=== PATIENT | female | born 1985 | race Caucasian/White ===

== ENCOUNTER 2020-12-08 04:19 | Emergency (ER) | payer OTHER ==
[~2020-12-08] VITALS: Ht 167.6 cm; Wt 52.2 kg
--- NOTE | 2020-12-08 04:44 | Emergency Room Report ---
History of Present Illness General Chief Complaint: Abdominal Pain Source: Patient (Corey Villa MD) Present Illness HPI 35-year-old female with no past medical history. She does get a history of frequent abdominal pain with nausea and vomiting. Has not had a problem for a year. She says she gets this intestinal obstruction with severe pain and go away after she go to sleep. This pain been ongoing for 1 day. She has multiple episode of vomiting. Pain is sharp in nature. 10 out of 10. She has no previous abdominal or pelvic surgery. She never had any work-up for this. No CT scan or endoscopy or colonoscopy. Nothing made it better. Any movement or palpation made it worse. No sick contact. (Corey Villa MD) Allergies: Coded Allergies: No Known Allergies (Unverified , 12/08/20) COVID-19 Screening Contact w/high risk pt: No Experienced COVID-19 symptoms?: No COVID-19 Testing performed SHIP SCRAPER: No (Corey Villa MD) Patient History Past Medical History: see triage record, old chart reviewed Past Surgical History: none Pertinent Family History: none Social History: Denies: smoking Now: No Immunizations: other Reviewed Nursing Documentation: PMH: Agreed; PSxH: Agreed (Corey Villa MD) Review of Systems Eye: Denies: eye pain, blurred vision ENT: Denies: ear pain, nose congestion, throat swelling Respiratory: Denies: cough, shortness of breath Cardiovascular: Denies: chest pain, palpitations Gastrointestinal: Reports: abdominal pain, nausea, vomiting; Denies: diarrhea Musculoskeletal: Denies: back pain, joint pain Skin: Denies: rash Neurological: Denies: headache, numbness Endocrine: Denies: increased thirst, increased urine Hematologic/Lymphatic: Denies: easy bruising All Other Systems: negative except mentioned in HPI (oCrey Villa MD) Physical Exam Vital Signs Date Time Temp Pulse Resp B/P (MAP) Pulse Ox O2 Delivery O2 Flow Rate FiO2 12/08/20 04:23 97.2 74 16 115/79 (91) 100 Room Air Vitals normal Sp02 EP Interpretation: reviewed, normal General Appearance: well appearing, no apparent distress, alert Head: normocephalic, atraumatic Eyes: bilateral eye PERRL, bilateral eye EOMI ENT: hearing grossly normal, normal pharynx Neck: full range of motion, supple, no meningismus Respiratory: chest non-tender, lungs clear, normal breath sounds Cardiovascular #1: regular rate, rhythm, no murmur Gastrointestinal: no mass, no organomegaly, no bruit, non-distended, tenderness - Diffuse, other - borogymi bowel sounds Musculoskeletal: back normal, normal range of motion, gait/station normal Psychiatric: mood/affect normal (Corey Villa MD) Medical Decision Making Diagnostic Impression: Primary Impression: SBO (small bowel obstruction) ER Course Patient with abdominal pain and nausea and vomiting. She is feeling better now after IV fluid, pain medication and antiemetics. Laboratory data is unremarkable. CT scan is still pending. I will sign this patient out to the oncoming doctor. (Corey Villa MD) ER Course Hospital Course 35-year-old female presents with abdominal pain and distention Initially seen and evaluated by Dr Villa; please see his note for full history and physical Clinical course Labs - no leukocytosis, Hb/Hct stable, electrolytes okay, UA negative CT abdomen and pelvis -high-grade small bowel obstruction Discussed with patient. NG tube placed. Confirmed on KUB. IV hydration continued. because of insurance patient will be transferred I feel this is a highly complex case requiring extensive working including EKG/Rhythm strip, Xray/CT/US, Blood/urine lab work, repeat exams while in ED, and administration of strong opiates/narcotics for pain control, admission to hospital or close patient follow up. Diagnosis - SBO Transferred in serious condition Laboratory Tests Test 12/08/20 04:40 12/08/20 04:49 Urine Color Yellow Urine Appearance Clear Urine pH 5 (4.5-8.0) Urine Specific Only 1.030 (1.005-1.035) Urine Protein 1+ (NEGATIVE) H Urine Glucose (UA) Negative (NEGATIVE) Urine Ketones 3+ (NEGATIVE) H Urine Blood 1+ (NEGATIVE) H Urine Nitrite Negative (NEGATIVE) Urine Bilirubin Negative (NEGATIVE) Urine Urobilinogen Normal MG/DL (0.0-1.0) Urine Leukocyte Esterase Negative (NEGATIVE) Urine RBC 0-2 /HPF (0 - 2) Urine WBC 0-2 /HPF (0 - 2) Urine Squamous Epithelial Cells Few /LPF (NONE/OCC) Urine Bacteria None /HPF (NONE) White Blood Count 8.5 K/UL (4.8-10.8) Red Blood Count 4.27 M/UL (4.20-5.40) Hemoglobin 13.8 G/DL (12.0-16.0) Hematocrit 41.7 % (37.0-47.0) Mean Corpuscular Volume 97 FL (80-99) Mean Corpuscular Hemoglobin 32.3 PG (27.0-31.0) H Mean Corpuscular Hemoglobin Concent 33.2 G/DL (32.0-36.0) Red Cell Distribution Width 12.4 % (11.6-14.8) Platelet Count 351 K/UL (150-450) Mean Platelet Volume 7.4 FL (6.5-10.1) Neutrophils (%) (Auto) % (45.0-75.0) Lymphocytes (%) (Auto) % (20.0-45.0) Monocytes (%) (Auto) % (1.0-10.0) Eosinophils (%) (Auto) % (0.0-3.0) Basophils (%) (Auto) % (0.0-2.0) Prothrombin Time 10.1 SEC (9.30-11.50) Prothromb Time International Ratio 0.9 (0.9-1.1) Activated Partial Thromboplast Time 26 SEC (23-33) Sodium Level 135 MMOL/L (136-145) L Potassium Level 4.1 MMOL/L (3.5-5.1) Chloride Level 99 MMOL/L (98-107) Carbon Dioxide Level 26 MMOL/L (21-32) Anion Gap 10 mmol/L (5-15) Blood Urea Nitrogen 14 mg/dL (7-18) Creatinine 0.8 MG/DL (0.55-1.30) Estimat Glomerular Filtration Rate > 60 mL/min (>60) Glucose Level 106 MG/DL (74-106) Calcium Level 9.3 MG/DL (8.5-10.1) Total Bilirubin 0.8 MG/DL (0.2-1.0) Aspartate Amino Transf (AST/SGOT) 23 U/L (15-37) Alanine Aminotransferase (ALT/SGPT) 24 U/L (12-78) Alkaline Phosphatase 49 U/L (46-116) Total Protein 7.6 G/DL (6.4-8.2) Albumin 4.4 G/DL (3.4-5.0) Globulin 3.2 g/dL Albumin/Globulin Ratio 1.4 (1.0-2.7) Lipase 76 U/L (73-393) Human Chorionic Gonadotropin, Quant 1 mIU/mL (1-6) (Roosevelt Feliciano MD) CT/MRI/US Diagnostic Results CT/MRI/US Diagnostic Results : Imaging Test Ordered: CT A/P Impression Procedure: CT Abdomen Pelvis WO Contrast EXAM: CT Abdomen and Pelvis Without Intravenous Contrast CLINICAL HISTORY: ABD PAIN TECHNIQUE: Axial computed tomography images of the abdomen and pelvis without intravenous contrast. Dose information not available. One or more of the following dose reduction techniques were used: automated exposure control, adjustment of the mA and/or kV according to patient size, use of iterative reconstruction technique. COMPARISON: No relevant prior studies available. FINDINGS: Lung bases: Unremarkable. No mass. No consolidation. ABDOMEN: Liver: Unremarkable. Gallbladder and bile ducts: Unremarkable. No calcified stones. No ductal dilation. Pancreas: Unremarkable. No ductal dilation. Spleen: Unremarkable. No splenomegaly. Adrenals: Unremarkable. No mass. Kidneys and ureters: Unremarkable. No obstructing stones. No hydronephrosis. Stomach and bowel: High-grade small bowel obstruction consisting of a dilated small bowel loop measuring up to 8.2 cm. There is ascitic, severe narrowing along both proximal and distal aspects of a prominent small bowel loop and therefore a closed loop obstruction is suspected. In addition, there is mild swirling of the abdominal mesentery, which increases index of suspicion for closed-loop obstruction. Surgical consultation is recommended. No perforation or free intraperitoneal air at this time. PELVIS: Appendix: Normal appendix. Bladder: Unremarkable. No stones. Reproductive: Unremarkable as visualized. ABDOMEN and PELVIS: Intraperitoneal space: Unremarkable. No free air. No significant fluid collection. Bones/joints: No acute fracture. No dislocation. Soft tissues: Unremarkable. Vasculature: Unremarkable. No abdominal aortic aneurysm. Lymph nodes: Unremarkable. No enlarged lymph nodes. IMPRESSION: High-grade small bowel obstruction consisting of a dilated small bowel loop measuring up to 8.2 cm. There is ascitic, severe narrowing along both proximal and distal aspects of a prominent small bowel loop and therefore a closed loop obstruction is suspected. In addition, there is mild swirling of the abdominal mesentery, which increases index of suspicion for closed-loop obstruction. Surgical consultation is recommended. No perforation or free intraperitoneal air at this time. <MYCVCSECTION> Communications: 12/08/20 07:40 Call Doctor Regarding Other, called Dr. Feliciano on 12/08 07:41 (-07:00) (Roosevelt Feliciano MD) Last Vital Signs Date Time Temp Pulse Resp B/P (MAP) Pulse Ox O2 Delivery O2 Flow Rate FiO2 12/08/20 04:23 97.2 74 16 115/79 (91) 100 Room Air Status: improved (Corey Villa MD) Status: improved (Roosevelt Feliciano MD) Disposition: SHORT-TERM HOSP Condition: Serious Corey Villa MD Dec 08, 2020 04:44 Roosevelt Feliciano MD Dec 08, 2020 11:42
[2020-12-08] MEDS ORDERED: Morphine Sulfate 4mg/ml Inj IVP ONE ×3 (04:45→10:30)
--- NOTE | 2020-12-08 04:50 | NUR ---
Patient arrived to ER via ambulatory c/o nausea, vomiting and abdominal pain. New orders received from EDP and carried out. All procedures were explain to the patient . Patient verbalized understanding. Safety and comfort measures taken: bed set in low position, frequent rounds, call light within reach. Will continue monitoring the patient during the sift.
[2020-12-08 05:18] LABS: APPEARANCE,URINE CLEAR; BILIRUBIN, URINE NEGATIVE (NEGATIVE); GLUCOSE, URINE (UA) NEGATIVE (NEGATIVE); KETONES,URINE 3+ (NEGATIVE); LEUKOCYTE ESTERASE ,URINE NEGATIVE (NEGATIVE); NITRITE,URINE NEGATIVE (NEGATIVE); PH,URINE 5 (4.5-8.0); PROTEIN,URINE 1+ (NEGATIVE); UROBILINOGEN,URINE NORMAL MG/DL (0.0-1.0)
[2020-12-08 05:21] VITALS: BP 115/79
[2020-12-08 05:23] LABS: HEMATOCRIT 41.7 % (37.0-47.0); HEMOGLOBIN 13.8 G/DL (12.0-16.0); MEAN CORPUSCULAR VOLUME 97 FL (80-99); PLATELET COUNT 351 K/UL (150-450); RED BLOOD COUNT 4.27 M/UL (4.20-5.40); RED CELL DISTRIBUTION WIDTH 12.4 % (11.6-14.8); WHITE BLOOD COUNT 8.5 K/UL (4.8-10.8)
[2020-12-08 05:29] LABS: COLOR,URINE YELLOW
[2020-12-08 05:34] LABS: ANION GAP 10 mmol/L (5-15); BLOOD UREA NITROGEN 14 mg/dL (7-18); CALCIUM 9.3 MG/DL (8.5-10.1); CARBON DIOXIDE 26 MMOL/L (21-32); CHLORIDE 99 MMOL/L (98-107); CREATININE 0.8 MG/DL (0.55-1.30); POTASSIUM 4.1 MMOL/L (3.5-5.1); SODIUM 135 MMOL/L (136-145)
[2020-12-08 05:38] LABS: ALANINE AMINOTRANSFERASE 24 U/L (12-78); ALBUMIN 4.4 G/DL (3.4-5.0); ALBUMIN/GLOBULIN RATIO 1.4 (1.0-2.7); ALKALINE PHOSPHATASE 49 U/L (46-116); ASPARTATE AMINO TRANSFERASE 23 U/L (15-37); BILIRUBIN,TOTAL 0.8 MG/DL (0.2-1.0)
--- NOTE | 2020-12-08 05:52 | NUR ---
Patient in bed in comfortable position and stable condition. All vitals signs were taken within normal range. Urine and blood were collected and sent them to the lab. All medications were administered without adverse reaction. Patient continuous attached to the monitor.
[2020-12-08 06:42] VITALS: BP 113/80
[2020-12-08] MEDS ORDERED: Ketorolac 30mg Inj IV ONE (06:45)
--- NOTE | 2020-12-08 06:45 | NUR ---
Pte complaining of pain, EDP aware new orders received for pain medications orders carried out. Will continue to monitor the patient.
[2020-12-08 07:13] VITALS: BP 110/67
--- NOTE | 2020-12-08 07:40 | Diagnostic Imaging Report ---
EXAM: CT Abdomen and Pelvis Without Intravenous Contrast CLINICAL HISTORY: ABD PAIN TECHNIQUE: Axial computed tomography images of the abdomen and pelvis without intravenous contrast. Dose information not available. One or more of the following dose reduction techniques were used: automated exposure control, adjustment of the mA and/or kV according to patient size, use of iterative reconstruction technique. COMPARISON: No relevant prior studies available. FINDINGS: Lung bases: Unremarkable. No mass. No consolidation. ABDOMEN: Liver: Unremarkable. Gallbladder and bile ducts: Unremarkable. No calcified stones. No ductal dilation. Pancreas: Unremarkable. No ductal dilation. Spleen: Unremarkable. No splenomegaly. Adrenals: Unremarkable. No mass. Kidneys and ureters: Unremarkable. No obstructing stones. No hydronephrosis. Stomach and bowel: High-grade small bowel obstruction consisting of a dilated small bowel loop measuring up to 8.2 cm. There is ascitic, severe narrowing along both proximal and distal aspects of a prominent small bowel loop and therefore a closed loop obstruction is suspected. In addition, there is mild swirling of the abdominal mesentery, which increases index of suspicion for closed-loop obstruction. Surgical consultation is recommended. No perforation or free intraperitoneal air at this time. PELVIS: Appendix: Normal appendix. Bladder: Unremarkable. No stones. Reproductive: Unremarkable as visualized. ABDOMEN and PELVIS: Intraperitoneal space: Unremarkable. No free air. No significant fluid collection. Bones/joints: No acute fracture. No dislocation. Soft tissues: Unremarkable. Vasculature: Unremarkable. No abdominal aortic aneurysm. Lymph nodes: Unremarkable. No enlarged lymph nodes. IMPRESSION: High-grade small bowel obstruction consisting of a dilated small bowel loop measuring up to 8.2 cm. There is ascitic, severe narrowing along both proximal and distal aspects of a prominent small bowel loop and therefore a closed loop obstruction is suspected. In addition, there is mild swirling of the abdominal mesentery, which increases index of suspicion for closed-loop obstruction. Surgical consultation is recommended. No perforation or free intraperitoneal air at this time. <MYCVCSECTION> Communications: 12/08/20 07:40 Call Doctor Regarding Other, called Dr. Feliciano on 12/08 07:41 (-07:00)
[2020-12-08 08:45] LABS: INR 0.9 (0.9-1.1)
[2020-12-08 10:12] VITALS: BP 114/84
--- NOTE | 2020-12-08 10:15 | Diagnostic Imaging Report ---
Indication: Nasogastric intubation Technique: XRAY Abdomen 1v Comparison: Is made to CT abdomen and pelvis earlier the same day Findings: Nasogastric tube tip in the stomach. There is a markedly dilated loop of bowel in the midabdomen consistent with high-grade bowel obstruction noted on concurrent CT. Imaged lung bases are clear. Partially imaged heart normal in size. No acute osseous abnormality. IMPRESSION: NG tube in satisfactory position with the tip and side port projecting over the stomach.
--- NOTE | 2020-12-08 10:55 | NUR ---
0715: taking over pt care. pt on monitor. VSS. 0815: 14 [place] NG tube placed in R nare. set to low intermittent suction. gastric contents removed. confirmed with xray. pt medicated for pain per eMAR.
--- NOTE | 2020-12-08 12:11 | NUR ---
report given to lizbeth posey patient is to be transferd to room 426b at [facility] transported via [facility]
[2020-12-08 12:15] VITALS: BP 107/84
--- NOTE | 2020-12-08 12:25 | NUR ---
1220: transport at bedside. pt transferred. Rosa CROFT called report. VSS. suction canister has 75mL gastric contents.
== END 2020-12-08 12:31 | disposition short-term general hospital (02) ==
LOC: EMR 04:43
DX: K56.609 Unspecified intestinal obstruction, unspecified as to partial versus complete obstruction (principal)
CPT/HCPCS: 36415; 74018; 74176; 80053; 81003; 83690; 84702; 85025; 85610; 85730; 86850; 86900; 86901; 96361; 96374; 96375; 96376; J1885; J2270; J2405; J7030; Z7502; 99285